=== PATIENT | female | born 1945 | race Caucasian/White ===

== ENCOUNTER 2021-04-06 16:59 | Emergency (ER) | payer OTHER ==
[2021-04-06 17:20] VITALS: TEMP 98; BMI 39.3
[2021-04-06] MEDS ORDERED: LIDOCAINE 5% TOPICAL PATCH TP ONE (17:45)
[2021-04-06] MEDS ORDERED: ACETAMINOPHEN 500 MG TABLET (FP) PO ONE (17:45)
[2021-04-06] MEDS ORDERED: ACETAMINOPHEN 500 MG TABLET (FP) ONE (17:49)
[2021-04-06 21:32] VITALS: BP 166/85; PULSE 61
[2021-04-06] MEDS ORDERED: LIDOCAINE PATCH REMOVAL MC SCH (22:00)
== END 2021-04-06 21:50 | disposition home or self-care (01) ==
LOC: JERFT 16:59 → JER 16:59
DX: M25.552 Pain in left hip (principal); R07.81 Pleurodynia; M54.5 Low back pain; W18.2XXA Fall in (into) shower or empty bathtub, initial encounter
CPT/HCPCS: 71046-TC-FY; 71101-TC-LT-FY; 72100-TC-FY; 72192-TC; 73562-TC-LT-FY; 73610-TC-LT-FY; 73630-TC-LT; 73700-TC-RT; 99285-25

== ENCOUNTER 2021-12-14 17:34 | Inpatient (IN) | payer OTHER ==
[2021-12-14 17:58] VITALS: BMI 43.0
[2021-12-14] MEDS ORDERED: ALBUTEROL SO4 2.5/IPRATROPIUM 0.5 INH SOL 3 ML VIAL.NEB. NEB ONE (18:39)
[2021-12-14 18:53] LABS: BASO % 1.1 % (0-2.0); EOS % 2.3 % (0-4.5); HEMATOCRIT 35.3 % (32.4-45.2); LYMPH % 35.9 % (8-40); MCH 23.1 pg (25.7-33.7); MCHC 31.3 g/dl (32.0-36.0); MEAN CELL VOLUME 73.8 fl (80-96); MEAN PLT VOLUME 7.7 fl (7.5-11.1); MONO % 17.3 % (3.8-10.2); NEUT % 43.4 % (42.8-82.8); PLATELET COUNT 306 10^3/uL (134-434); RBC 4.78 M/mm3 (3.60-5.2); RDW 16.9 % (11.6-15.6); WHITE BLOOD COUNT 5.7 K/mm3 (4.0-10.0)
[2021-12-14 19:00] LABS: INR 1.31 (0.83-1.09); PROTHROMBIN TIME (PATIENT) 15.1 SEC (9.7-13.0)
[2021-12-14 19:03] LABS: ACTIVATED PTT 29.1 SECONDS (25.2-36.5)
[2021-12-14] MEDS: ALBUTEROL SO4 2.5/IPRATROPIUM 0.5 INH SOL 3 ML VIAL.NEB. NEB SCH ×2 (19:05→19:30)
[2021-12-14 19:17] LABS: CALCIUM 8.8 mg/dL (8.5-10.1)
[2021-12-14 19:18] LABS: ALBUMIN 3.8 g/dl (3.4-5.0); MAGNESIUM 1.9 mg/dL (1.8-2.4)
[2021-12-14 19:21] LABS: CREATININE 0.6 mg/dL (0.55-1.3)
[2021-12-14 19:22] LABS: BILIRUBIN,TOTAL 0.2 mg/dL (0.2-1); TOT PROT 6.9 g/dl (6.4-8.2)
[2021-12-14 19:26] LABS: N-TERMINAL BNP 250.7 pg/ml (5-450)
[2021-12-14] MEDS ORDERED: methylPREDNISolone NA SUCC 125 MG/2 ML VIAL IVPUSH ONE (19:51)
[2021-12-14] MEDS ORDERED: ALBUTEROL SO4 0.5 % INH SOLN 2.5 MG/0.5 ML VIAL.NEB. NEB ONE ×2 (20:33→21:04)
[2021-12-14] MEDS ORDERED: methylPREDNISolone NA SUCC 125 MG/2 ML VIAL ONE (20:33)
[2021-12-15] MEDS ORDERED: methylPREDNISolone NA SUCC 40 MG/1 ML VIAL ONE ×2 (04:09→09:17)
[2021-12-15] MEDS: methylPREDNISolone NA SUCC 40 MG/1 ML VIAL IVPUSH SCH ×2 (04:29→09:30)
[2021-12-15] MEDS ORDERED: ACETAMINOPHEN 1000 MG/100 ML BAG IVPB PRN (04:32)
[2021-12-15 07:31] LABS: BASO % 0.2 % (0-2.0); HEMATOCRIT 35.4 % (32.4-45.2); HEMOGLOBIN 11.2 GM/dL (10.7-15.3); LYMPH % 23.7 % (8-40); MCH 23.2 pg (25.7-33.7); MCHC 31.7 g/dl (32.0-36.0); MEAN PLT VOLUME 7.7 fl (7.5-11.1); MONO % 4.4 % (3.8-10.2); NEUT % 71.7 % (42.8-82.8); PLATELET COUNT 277 10^3/uL (134-434); RBC 4.85 M/mm3 (3.60-5.2); RDW 16.6 % (11.6-15.6); WHITE BLOOD COUNT 4.7 K/mm3 (4.0-10.0)
[2021-12-15 07:55] LABS: ALBUMIN 3.7 g/dl (3.4-5.0); BLOOD UREA NITROGEN 6.5 mg/dL (7-18)
[2021-12-15 07:57] LABS: CREATININE 0.5 mg/dL (0.55-1.3); PHOSPHOROUS 3.6 mg/dL (2.5-4.9)
[2021-12-15 07:58] LABS: BILIRUBIN,TOTAL 0.4 mg/dL (0.2-1)
[2021-12-15 07:59] LABS: TOT PROT 7.2 g/dl (6.4-8.2)
[2021-12-15] MEDS: INSULIN SLIDING SCALE (NOVOLOG) 1 VIAL SQ SCH ×4 (08:00→22:09)
[2021-12-15] MEDS: PANTOPRAZOLE 20 MG TABLET PO SCH (09:00)
[2021-12-15] MEDS: LISINOPRIL 10 MG TABLET PO SCH (09:00)
[2021-12-15] MEDS: PREGABALIN 100 MG CAPSULE PO SCH ×2 (09:00→22:00)
[2021-12-15] MEDS: amLODIPine BESYLATE 5 MG TABLET (FP) PO SCH (09:00)
[2021-12-15] MEDS: ALBUTEROL SO4 2.5/IPRATROPIUM 0.5 INH SOL 3 ML VIAL.NEB. NEB SCH ×2 (09:00→13:24)
[2021-12-15] MEDS: MEMANTINE HCL 10 MG TABLET (FP) PO SCH ×2 (09:00→22:00)
[2021-12-15 09:08] LABS: EPI CELLS 7 /uL (0-25.1); HYALINE CASTS 0 /uL (0-3.1); PH,URINE 7.5 (5.0-8.0); URINE APPEARANCE CLEAR; URINE BACTERIA 33 /uL (0-1359); URINE BILIRUBIN NEGATIVE (NEGATIVE); URINE COLOR YELLOW; URINE GLUCOSE (UA) NEGATIVE (NEGATIVE); URINE KETONE NEGATIVE (NEGATIVE); URINE LEUK ESTERASE NEGATIVE (NEGATIVE); URINE NITRITE NEGATIVE (NEGATIVE); URINE PROTEIN 2+ (NEGATIVE); URINE RBC 7 /uL (0-23.9); URINE UROBILINOGEN 0.2 mg/dL (0.2-1.0); URINE WBC 6 /uL (0-25.8)
[2021-12-15] MEDS ORDERED: amLODIPine BESYLATE 5 MG TABLET (FP) ONE (09:16)
[2021-12-15] MEDS ORDERED: ALBUTEROL SO4 2.5/IPRATROPIUM 0.5 INH SOL 3 ML VIAL.NEB. NEB ONE ×2 (09:16→13:14)
[2021-12-15] MEDS ORDERED: PREGABALIN 100 MG CAPSULE ONE (09:16)
[2021-12-15] MEDS ORDERED: PANTOPRAZOLE 20 MG TABLET PO ONE (09:16)
[2021-12-15] MEDS ORDERED: LISINOPRIL 10 MG TABLET ONE (09:17)
[2021-12-15] MEDS ORDERED: AZITHROMYCIN IVPB 500 MG/250 ML BAG IVPB ONE (09:17)
[2021-12-15] MEDS: OXcarbazepine 300 MG TABLET (UD) PO SCH ×2 (09:30→22:52)
[2021-12-15] MEDS: RIVAROXABAN 10 MG TABLET PO SCH (09:30)
[2021-12-15] MEDS ORDERED: PATIENT'S OWN MEDICATION (NON-FORMULARY) (Amlodipine Besylate/Benazepril [Amlodipine-Benaz PO SCH (10:00)
[2021-12-15] MEDS ORDERED: BUDESONIDE/FORMETEROL FUMARATE 80/4.5 mcg INHALER IH SCH (10:00)
[2021-12-15] MEDS: AZITHROMYCIN IVPB 500 MG/250 ML BAG IVPB SCH (11:30)
[2021-12-15 11:48] LABS: ARTERIAL BLOOD GAS pH 7.427 (7.350-7.450)
[2021-12-15 11:49] LABS: ARTERIAL BLOOD GAS BASE EXCESS -0.1 mmol/L (-2-2); ARTERIAL BLOOD GAS PO2 67.7 mmHg (80-100)
[2021-12-15 11:50] LABS: ALLENS TEST POSITIVE
[2021-12-15] MEDS ORDERED: buPROPion HCL 100 MG TABLET ONE (13:14)
[2021-12-15] MEDS ORDERED: DONEPEZIL HCL 10 MG TABLET (FP) PO SCH (22:00)
[2021-12-15] MEDS ORDERED: PRAMIPEXOLE DIHYDROCHLORIDE 0.25 MG TABLET PO SCH (22:00)
[2021-12-16] MEDS: INSULIN SLIDING SCALE (NOVOLOG) 1 VIAL SQ SCH ×3 (06:33→17:15)
[2021-12-16 06:48] LABS: HEMATOCRIT 34.3 % (32.4-45.2); HEMOGLOBIN 10.7 GM/dL (10.7-15.3); MCH 23.1 pg (25.7-33.7); MCHC 31.2 g/dl (32.0-36.0); MEAN CELL VOLUME 74.3 fl (80-96); MEAN PLT VOLUME 8.2 fl (7.5-11.1); PLATELET COUNT 301 10^3/uL (134-434); RBC 4.62 M/mm3 (3.60-5.2); WHITE BLOOD COUNT 11.7 K/mm3 (4.0-10.0)
[2021-12-16 07:32] LABS: BLOOD UREA NITROGEN 11.9 mg/dL (7-18); CALCIUM 8.8 mg/dL (8.5-10.1)
[2021-12-16 07:36] LABS: CREATININE 0.6 mg/dL (0.55-1.3); PHOSPHOROUS 4.6 mg/dL (2.5-4.9)
[2021-12-16] MEDS: LISINOPRIL 10 MG TABLET PO SCH (09:54)
[2021-12-16] MEDS: amLODIPine BESYLATE 5 MG TABLET (FP) PO SCH (09:54)
[2021-12-16] MEDS: MEMANTINE HCL 10 MG TABLET (FP) PO SCH (09:54)
[2021-12-16] MEDS: PANTOPRAZOLE 20 MG TABLET PO SCH (09:54)
[2021-12-16] MEDS: OXcarbazepine 300 MG TABLET (UD) PO SCH (09:55)
[2021-12-16] MEDS: RIVAROXABAN 10 MG TABLET PO SCH (09:55)
[2021-12-16] MEDS ORDERED: NADOLOL 20 MG TABLET (FP) PO SCH (10:00)
[2021-12-16] MEDS: AZITHROMYCIN IVPB 500 MG/250 ML BAG IVPB SCH (10:00)
[2021-12-16] MEDS: PREGABALIN 100 MG CAPSULE PO SCH (10:02)
[2021-12-16] MEDS ORDERED: predniSONE 20 MG TABLET (UD) PO SCH (15:45)
[2021-12-16 18:26] VITALS: BP 124/78; PULSE 60; TEMP 98.1
== END 2021-12-16 18:48 | disposition home or self-care (01) | DRG 202 ==
LOC: JER 17:34 → JERBED 19:51 → J4W 12-15 18:59
PROVIDERS: ADMIT Internal Medicine; ATTEND Internal Medicine
DX: J20.9 Acute bronchitis, unspecified (principal); J96.01 Acute respiratory failure with hypoxia; Z68.41 Body mass index [BMI] 40.0-44.9, adult; E87.1 Hypo-osmolality and hyponatremia; E11.9 Type 2 diabetes mellitus without complications; K57.90 Diverticulosis of intestine, part unspecified, without perforation or abscess without bleeding; G20 Parkinson's disease; K90.0 Celiac disease; G30.9 Alzheimer's disease, unspecified; F02.80 Dementia in other diseases classified elsewhere, unspecified severity, without behavioral disturbance, psychotic disturbance, mood disturbance, and anxiety; E66.01 Morbid (severe) obesity due to excess calories; E11.65 Type 2 diabetes mellitus with hyperglycemia; R94.31 Abnormal electrocardiogram [ECG] [EKG]; G50.0 Trigeminal neuralgia; G25.81 Restless legs syndrome; D50.9 Iron deficiency anemia, unspecified; K64.8 Other hemorrhoids; G47.00 Insomnia, unspecified; N28.1 Cyst of kidney, acquired; G43.809 Other migraine, not intractable, without status migrainosus; M81.0 Age-related osteoporosis without current pathological fracture; F41.9 Anxiety disorder, unspecified; M54.50 Low back pain, unspecified; Z86.711 Personal history of pulmonary embolism; Z86.73 Personal history of transient ischemic attack (TIA), and cerebral infarction without residual deficits
CPT/HCPCS: 0241U-QW; 36415; 36600; 71045-TC-FY; 71250-TC; 80048; 80053; 81003; 82803; 82962; 83735; 83880; 84100; 84443; 84484; 85025; 85027; 85610; 85730; 87040; 87070; 87086; 87205; 87899; 93005; 93010; 93306-TC; 94761; 97116-GP; 97161-GP; 99291; 99292

== ENCOUNTER 2022-08-27 11:44 | Inpatient (IN) | payer OTHER ==
[2022-08-27 11:54] VITALS: BMI 43.7
[2022-08-27 14:31] LABS: BASO % 0.3 % (0-2.0); EOS % 1.5 % (0-4.5); HEMATOCRIT 25.7 % (32.4-45.2); HEMOGLOBIN 7.7 GM/dL (10.7-15.3); LYMPH % 34.1 % (8-40); MCHC 29.8 g/dl (32.0-36.0); MEAN CELL VOLUME 59.4 fl (80-96); MEAN PLT VOLUME 8.8 fl (7.5-11.1); MONO % 14.7 % (3.8-10.2); NEUT % 49.4 % (42.8-82.8); PLATELET COUNT 280 10^3/uL (134-434); RBC 4.33 M/mm3 (3.60-5.2); RDW 21.8 % (11.6-15.6); RETICULOCYTES 1.96 % (0.5-1.5); WHITE BLOOD COUNT 6.9 K/mm3 (4.0-10.0)
[2022-08-27 14:32] LABS: MCH 17.7 pg (25.7-33.7)
[2022-08-27 14:40] LABS: INR 1.28 (0.83-1.09); PROTHROMBIN TIME (PATIENT) 14.8 SEC (9.7-13.0)
[2022-08-27 14:43] LABS: ACTIVATED PTT 30.2 SECONDS (25.2-36.5)
[2022-08-27 14:50] LABS: CALCIUM 8.8 mg/dL (8.5-10.1)
[2022-08-27 14:51] LABS: ALBUMIN 3.6 g/dl (3.4-5.0); BLOOD UREA NITROGEN 7.4 mg/dL (7-18)
[2022-08-27 14:53] LABS: CREATININE 0.5 mg/dL (0.55-1.3)
[2022-08-27 14:56] LABS: BILIRUBIN,TOTAL 0.3 mg/dL (0.2-1); TOT PROT 6.5 g/dl (6.4-8.2)
[2022-08-27 15:48] LABS: ANISOCYTOSIS 3+; MACROCYTOSIS 0
[2022-08-27] MEDS: INSULIN SLIDING SCALE (NOVOLOG) 1 VIAL SQ SCH (16:43)
[2022-08-27] MEDS ORDERED: IRON SUCROSE INJECTION 100 MG in SODIUM CHLORIDE 95 ML IVPB ONE (17:00)
[2022-08-27] MEDS ORDERED: PREGABALIN 200 MG PO SCH (22:00)
[2022-08-27] MEDS: PRAMIPEXOLE DIHYDROCHLORIDE 0.25 MG TABLET PO SCH (22:16)
[2022-08-27] MEDS: PREGABALIN 100 MG CAPSULE PO SCH (22:16)
[2022-08-27] MEDS: MEMANTINE HCL 10 MG TABLET (FP) PO SCH (22:16)
[2022-08-27] MEDS: QUEtiapine FUMARATE 25 MG TABLET PO SCH (22:16)
[2022-08-27] MEDS: OXcarbazepine 300 MG TABLET (UD) PO SCH (22:17)
[2022-08-28] MEDS: INSULIN SLIDING SCALE (NOVOLOG) 1 VIAL SQ SCH ×3 (06:07→16:56)
[2022-08-28 07:55] LABS: BASO % 3.4 % (0-2.0); EOS % 2.7 % (0-4.5); HEMATOCRIT 29.3 % (32.4-45.2); HEMOGLOBIN 9.1 GM/dL (10.7-15.3); LYMPH % 29.5 % (8-40); MCHC 31.2 g/dl (32.0-36.0); MEAN CELL VOLUME 62.1 fl (80-96); MEAN PLT VOLUME 8.9 fl (7.5-11.1); MONO % 16.6 % (3.8-10.2); NEUT % 47.8 % (42.8-82.8); PLATELET COUNT 313 10^3/uL (134-434); RBC 4.71 M/mm3 (3.60-5.2); RDW 24.2 % (11.6-15.6); WHITE BLOOD COUNT 4.9 K/mm3 (4.0-10.0)
[2022-08-28 07:58] LABS: MCH 19.4 pg (25.7-33.7)
[2022-08-28 09:01] LABS: CREATININE 0.4 mg/dL (0.55-1.3)
[2022-08-28] MEDS: DONEPEZIL HCL 10 MG TABLET (FP) PO SCH (09:13)
[2022-08-28] MEDS: PANTOPRAZOLE 20 MG TABLET PO SCH (09:13)
[2022-08-28] MEDS: amLODIPine BESYLATE 5 MG TABLET (FP) PO SCH (09:13)
[2022-08-28] MEDS: MEMANTINE HCL 10 MG TABLET (FP) PO SCH ×2 (09:13→21:37)
[2022-08-28] MEDS: LISINOPRIL 10 MG TABLET PO SCH (09:13)
[2022-08-28] MEDS: OXcarbazepine 300 MG TABLET (UD) PO SCH ×2 (09:14→21:37)
[2022-08-28] MEDS: PREGABALIN 100 MG CAPSULE PO SCH ×2 (09:14→21:37)
[2022-08-28] MEDS ORDERED: PATIENT'S OWN MEDICATION (NON-FORMULARY) (Bupropion Hcl [Bupropion Xl] 300 MG Tab.Er.24h) PO SCH (10:00)
[2022-08-28] MEDS ORDERED: PATIENT'S OWN MEDICATION (NON-FORMULARY) (Amlodipine Besylate/Benazepril [Amlodipine-Benaz PO SCH (10:00)
[2022-08-28] MEDS ORDERED: PATIENT'S OWN MEDICATION (NON-FORMULARY) (Omeprazole 20 MG Capsule.Dr) PO SCH (10:00)
[2022-08-28] MEDS: SODIUM CHLORIDE 1,000 ML IV SCH (15:34)
[2022-08-28] MEDS: PRAMIPEXOLE DIHYDROCHLORIDE 0.25 MG TABLET PO SCH (21:37)
[2022-08-28] MEDS: QUEtiapine FUMARATE 25 MG TABLET PO SCH (21:37)
[2022-08-29] MEDS: INSULIN SLIDING SCALE (NOVOLOG) 1 VIAL SQ SCH ×3 (06:30→18:32)
[2022-08-29 07:49] LABS: BASO % 2.3 % (0-2.0); EOS % 1.8 % (0-4.5); HEMATOCRIT 29.5 % (32.4-45.2); HEMOGLOBIN 8.9 GM/dL (10.7-15.3); LYMPH % 24.3 % (8-40); MCHC 30.3 g/dl (32.0-36.0); MEAN CELL VOLUME 62.7 fl (80-96); MEAN PLT VOLUME 8.7 fl (7.5-11.1); MONO % 14.5 % (3.8-10.2); NEUT % 57.1 % (42.8-82.8); PLATELET COUNT 343 10^3/uL (134-434); RBC 4.71 M/mm3 (3.60-5.2); RDW 23.9 % (11.6-15.6); WHITE BLOOD COUNT 7.7 K/mm3 (4.0-10.0)
[2022-08-29 08:16] LABS: CREATININE 0.6 mg/dL (0.55-1.3)
[2022-08-29 08:27] LABS: BLOOD UREA NITROGEN 10.1 mg/dL (7-18)
[2022-08-29] MEDS: DONEPEZIL HCL 10 MG TABLET (FP) PO SCH (09:25)
[2022-08-29] MEDS: PANTOPRAZOLE 20 MG TABLET PO SCH (09:25)
[2022-08-29] MEDS: LISINOPRIL 10 MG TABLET PO SCH (09:25)
[2022-08-29] MEDS: MEMANTINE HCL 10 MG TABLET (FP) PO SCH ×2 (09:25→22:02)
[2022-08-29] MEDS: PREGABALIN 100 MG CAPSULE PO SCH ×2 (09:25→22:02)
[2022-08-29] MEDS: amLODIPine BESYLATE 5 MG TABLET (FP) PO SCH (09:25)
[2022-08-29] MEDS: OXcarbazepine 300 MG TABLET (UD) PO SCH ×2 (09:26→22:02)
[2022-08-29 10:55] LABS: MAGNESIUM 2.1 mg/dL (1.8-2.4)
[2022-08-29 10:56] LABS: ALBUMIN 3.6 g/dl (3.4-5.0)
[2022-08-29 11:00] LABS: BILIRUBIN,TOTAL 0.3 mg/dL (0.2-1); TOT PROT 6.6 g/dl (6.4-8.2)
[2022-08-29] MEDS ORDERED: ENOXAPARIN NA (PORCINE) 40 MG/0.4 ML DISP.SYRIN SQ SCH (13:00)
[2022-08-29] MEDS: SODIUM CHLORIDE 1,000 ML IV SCH (15:18)
[2022-08-29] MEDS: FAMOTIDINE 20 MG TABLET PO SCH (18:32)
[2022-08-29] MEDS: RIVAROXABAN 10 MG TABLET PO SCH (18:32)
[2022-08-29] MEDS: PRAMIPEXOLE DIHYDROCHLORIDE 0.25 MG TABLET PO SCH (22:02)
[2022-08-29] MEDS: QUEtiapine FUMARATE 25 MG TABLET PO SCH (22:02)
[2022-08-30] MEDS: INSULIN SLIDING SCALE (NOVOLOG) 1 VIAL SQ SCH ×3 (06:36→18:47)
[2022-08-30 08:20] LABS: BASO % 1.1 % (0-2.0); EOS % 0.2 % (0-4.5); HEMATOCRIT 33.2 % (32.4-45.2); HEMOGLOBIN 9.8 GM/dL (10.7-15.3); LYMPH % 13.9 % (8-40); MCHC 29.4 g/dl (32.0-36.0); MEAN CELL VOLUME 63.4 fl (80-96); MEAN PLT VOLUME 9.3 fl (7.5-11.1); MONO % 12.7 % (3.8-10.2); NEUT % 72.1 % (42.8-82.8); PLATELET COUNT 360 10^3/uL (134-434); RBC 5.24 M/mm3 (3.60-5.2); RDW 25.1 % (11.6-15.6); WHITE BLOOD COUNT 15.9 K/mm3 (4.0-10.0)
[2022-08-30 08:28] LABS: MCH 18.6 pg (25.7-33.7)
[2022-08-30 08:34] LABS: CALCIUM 9.3 mg/dL (8.5-10.1)
[2022-08-30 08:35] LABS: BLOOD UREA NITROGEN 13.6 mg/dL (7-18)
[2022-08-30 08:37] LABS: PHOSPHOROUS 4.3 mg/dL (2.5-4.9)
[2022-08-30 08:39] LABS: BILIRUBIN,TOTAL 0.5 mg/dL (0.2-1); TOT PROT 7.2 g/dl (6.4-8.2)
[2022-08-30] MEDS: FAMOTIDINE 20 MG TABLET PO SCH (09:37)
[2022-08-30] MEDS: amLODIPine BESYLATE 5 MG TABLET (FP) PO SCH (09:37)
[2022-08-30] MEDS: LISINOPRIL 10 MG TABLET PO SCH (09:37)
[2022-08-30] MEDS: DONEPEZIL HCL 10 MG TABLET (FP) PO SCH (09:37)
[2022-08-30] MEDS: PREGABALIN 100 MG CAPSULE PO SCH ×2 (09:37→21:31)
[2022-08-30] MEDS: MEMANTINE HCL 10 MG TABLET (FP) PO SCH ×2 (09:37→21:32)
[2022-08-30] MEDS: PANTOPRAZOLE 20 MG TABLET PO SCH (09:38)
[2022-08-30] MEDS: OXcarbazepine 300 MG TABLET (UD) PO SCH ×2 (09:38→21:33)
[2022-08-30] MEDS: RIVAROXABAN 10 MG TABLET PO SCH (09:39)
[2022-08-30] MEDS ORDERED: NAPH,MB-DB/K PH,MBDB POWDER PACKET PO ONE (12:30)
[2022-08-30 13:18] LABS: BASO % 0.5 % (0-2.0); EOS % 0.6 % (0-4.5); HEMATOCRIT 31.2 % (32.4-45.2); HEMOGLOBIN 9.3 GM/dL (10.7-15.3); MCHC 29.8 g/dl (32.0-36.0); MEAN CELL VOLUME 63.3 fl (80-96); MEAN PLT VOLUME 8.6 fl (7.5-11.1); MONO % 11.4 % (3.8-10.2); NEUT % 75.5 % (42.8-82.8); PLATELET COUNT 349 10^3/uL (134-434); RBC 4.93 M/mm3 (3.60-5.2); RDW 25.4 % (11.6-15.6); WHITE BLOOD COUNT 12.8 K/mm3 (4.0-10.0)
[2022-08-30 13:19] LABS: MCH 18.8 pg (25.7-33.7)
[2022-08-30] MEDS ORDERED: QUEtiapine FUMARATE 25 MG TABLET PO SCH (14:36)
[2022-08-30] MEDS: PRAMIPEXOLE DIHYDROCHLORIDE 0.25 MG TABLET PO SCH (21:32)
[2022-08-31] MEDS: INSULIN SLIDING SCALE (NOVOLOG) 1 VIAL SQ SCH ×2 (06:18→12:08)
[2022-08-31 09:39] LABS: HEMATOCRIT 26.7 % (32.4-45.2); HEMOGLOBIN 8.2 GM/dL (10.7-15.3); MCHC 30.7 g/dl (32.0-36.0); MEAN CELL VOLUME 62.5 fl (80-96); MEAN PLT VOLUME 8.3 fl (7.5-11.1); PLATELET COUNT 309 10^3/uL (134-434); RBC 4.26 M/mm3 (3.60-5.2); RDW 25.4 % (11.6-15.6); WHITE BLOOD COUNT 7.3 K/mm3 (4.0-10.0)
[2022-08-31 09:50] LABS: MCH 19.2 pg (25.7-33.7)
[2022-08-31] MEDS: SODIUM PHOSPHATE - 30 MM in SODIUM CHLORIDE 500 ML IVPB ONE ×2 (09:58→12:38)
[2022-08-31] MEDS: SODIUM CHLORIDE 1,000 ML IV SCH ×2 (09:58→12:39)
[2022-08-31] MEDS: RIVAROXABAN 10 MG TABLET PO SCH (09:59)
[2022-08-31] MEDS: FAMOTIDINE 20 MG TABLET PO SCH (09:59)
[2022-08-31] MEDS: MEMANTINE HCL 10 MG TABLET (FP) PO SCH (10:00)
[2022-08-31] MEDS: OXcarbazepine 300 MG TABLET (UD) PO SCH (10:00)
[2022-08-31] MEDS: PANTOPRAZOLE 20 MG TABLET PO SCH (10:00)
[2022-08-31] MEDS: PREGABALIN 100 MG CAPSULE PO SCH (10:00)
[2022-08-31] MEDS: LISINOPRIL 10 MG TABLET PO SCH (10:00)
[2022-08-31] MEDS: amLODIPine BESYLATE 5 MG TABLET (FP) PO SCH (10:00)
[2022-08-31] MEDS ORDERED: PREGABALIN 50 MG CAPSULE PO SCH (10:48)
[2022-08-31 10:58] LABS: ALBUMIN 3.6 g/dl (3.4-5.0); BLOOD UREA NITROGEN 19.1 mg/dL (7-18); MAGNESIUM 1.8 mg/dL (1.8-2.4)
[2022-08-31 11:00] LABS: CREATININE 0.8 mg/dL (0.55-1.3)
[2022-08-31 11:01] LABS: PHOSPHOROUS 5.5 mg/dL (2.5-4.9)
[2022-08-31 11:02] LABS: BILIRUBIN,TOTAL 0.4 mg/dL (0.2-1); TOT PROT 6.6 g/dl (6.4-8.2)
[2022-08-31 11:58] VITALS: RESP 18
[2022-08-31 14:45] VITALS: BP 133/83; PULSE 73; TEMP 98.7
[2022-08-31] MEDS ORDERED: DONEPEZIL HCL 5 MG TABLET (FP) PO SCH (22:00)
[2022-09-01 17:09] LABS: GLIADIN ANTIBODY IGA 5 units (0-19); GLIADIN ANTIBODY IGG 4 units (0-19); TRANSGLUTAMINASE IGG 3 U/mL (0-5)
== END 2022-08-31 16:31 | disposition left against medical advice (07) | DRG 812 ==
LOC: JER 11:44 → JERBED 15:08 → J4W 17:31 → OBSVTOIN 08-29 11:51
PROVIDERS: ADMIT Internal Medicine; ATTEND Internal Medicine
PROC: 30233N1 Transfusion of Nonautologous Red Blood Cells into Peripheral Vein, Percutaneous Approach (ICD-10-PCS; principal; 2022-08-27)
DX: D50.9 Iron deficiency anemia, unspecified (principal); E87.1 Hypo-osmolality and hyponatremia; Z68.41 Body mass index [BMI] 40.0-44.9, adult; G30.9 Alzheimer's disease, unspecified; I10 Essential (primary) hypertension; G20 Parkinson's disease; E11.9 Type 2 diabetes mellitus without complications; K90.0 Celiac disease; G50.0 Trigeminal neuralgia; R19.5 Other fecal abnormalities; E66.01 Morbid (severe) obesity due to excess calories
CPT/HCPCS: 0241U-QW; 36415; 36430; 70450-TC; 71046-TC-FY; 80048; 80053; 82272; 82570; 82607; 82728; 82746; 82784; 82962; 83010; 83516; 83540; 83550; 83735; 83935; 84100; 84300; 84466; 85025; 85027; 85045; 85610; 85730; 86850; 86900; 86901; 86922; 93005; 93010; 94010; 94761; 97116-GP; 97162-GP; 99285-25; G0378; J1756; P9058

== ENCOUNTER 2022-10-31 11:38 | Inpatient (IN) | payer OTHER ==
[2022-10-31 11:57] VITALS: BMI 43.0
[2022-10-31 13:58] LABS: BASO % 3.1 % (0-2.0); EOS % 2.7 % (0-4.5); HEMATOCRIT 35.1 % (32.4-45.2); HEMOGLOBIN 11.1 GM/dL (10.7-15.3); LYMPH % 41.8 % (8-40); MCH 23.2 pg (25.7-33.7); MCHC 31.7 g/dl (32.0-36.0); MEAN CELL VOLUME 73.2 fl (80-96); MONO % 16.9 % (3.8-10.2); NEUT % 35.5 % (42.8-82.8); PLATELET COUNT 265 10^3/uL (134-434); RBC 4.79 M/mm3 (3.60-5.2); RDW 30.8 % (11.6-15.6); WHITE BLOOD COUNT 4.3 K/mm3 (4.0-10.0)
[2022-10-31 14:01] LABS: EPI CELLS 28 /uL (0-25.1); HYALINE CASTS 0 /uL (0-3.1); URINE APPEARANCE CLEAR; URINE BACTERIA 672 /uL (0-1359); URINE BILIRUBIN NEGATIVE (NEGATIVE); URINE COLOR YELLOW; URINE GLUCOSE (UA) NEGATIVE (NEGATIVE); URINE KETONE NEGATIVE (NEGATIVE); URINE LEUK ESTERASE NEGATIVE (NEGATIVE); URINE NITRITE NEGATIVE (NEGATIVE); URINE PROTEIN NEGATIVE (NEGATIVE); URINE RBC 9 /uL (0-23.9); URINE WBC 14 /uL (0-25.8)
[2022-10-31 14:05] LABS: INR 1.28 (0.83-1.09); PROTHROMBIN TIME (PATIENT) 14.8 SEC (9.7-13.0)
[2022-10-31 14:08] LABS: ACTIVATED PTT 35.1 SECONDS (25.2-36.5)
[2022-10-31 14:36] LABS: POTASSIUM 4.8 mmol/L (3.5-5.1)
[2022-10-31 14:38] LABS: CALCIUM 9.4 mg/dL (8.5-10.1)
[2022-10-31 14:39] LABS: ALBUMIN 3.7 g/dl (3.4-5.0)
[2022-10-31 14:42] LABS: CREATININE 0.5 mg/dL (0.55-1.3)
[2022-10-31 14:43] LABS: BILIRUBIN,TOTAL 0.2 mg/dL (0.2-1); TOT PROT 6.9 g/dl (6.4-8.2)
[2022-10-31] MEDS ORDERED: CEFTRIAXONE 1 GM in DEXTROSE 5%-WATER - 100 ML IVPB ONE (15:37)
[2022-10-31] MEDS ORDERED: cefTRIAXone SODIUM 1 GM VIAL ONE (16:33)
[2022-10-31] MEDS: PREGABALIN 100 MG CAPSULE PO SCH (21:23)
[2022-10-31] MEDS: QUEtiapine FUMARATE 25 MG TABLET PO SCH (21:23)
[2022-10-31] MEDS: MEMANTINE HCL 10 MG TABLET (FP) PO SCH (21:24)
[2022-10-31] MEDS ORDERED: PANTOPRAZOLE 20 MG TABLET PO SCH (22:00)
[2022-10-31] MEDS ORDERED: SENNOSIDES 8.8 MG/5 ML SYRUP PO SCH (22:00)
[2022-10-31] MEDS: PRAMIPEXOLE DIHYDROCHLORIDE 0.25 MG TABLET PO SCH (22:02)
[2022-10-31] MEDS: OXcarbazepine 300 MG TABLET (UD) PO SCH (22:02)
[2022-11-01] MEDS ORDERED: NADOLOL 20 MG TABLET (FP) ONE (09:14)
[2022-11-01] MEDS: PREGABALIN 100 MG CAPSULE PO SCH ×2 (09:58→21:37)
[2022-11-01] MEDS: PANTOPRAZOLE 20 MG TABLET PO SCH (09:59)
[2022-11-01] MEDS: MEMANTINE HCL 10 MG TABLET (FP) PO SCH ×2 (09:59→21:37)
[2022-11-01] MEDS ORDERED: NADOLOL 40 MG TABLET (FP) PO SCH (10:00)
[2022-11-01] MEDS ORDERED: amLODIPine BESYLATE 5 MG TABLET (FP) PO SCH (10:00)
[2022-11-01] MEDS ORDERED: PATIENT'S OWN MEDICATION (NON-FORMULARY) (Amlodipine Besylate/Benazepril [Amlodipine-Benaz PO SCH (10:00)
[2022-11-01] MEDS ORDERED: CEFTRIAXONE 1 GM in DEXTROSE 5%-WATER - 50 ML IVPB SCH (10:00)
[2022-11-01] MEDS: OXcarbazepine 300 MG TABLET (UD) PO SCH ×2 (10:00→21:37)
[2022-11-01] MEDS ORDERED: LISINOPRIL 10 MG TABLET PO SCH (10:00)
[2022-11-01] MEDS ORDERED: POLYETHYLENE GLYCOL (HEALTHYLAX) 3350 17 GM PACKET PO SCH (10:00)
[2022-11-01 11:27] LABS: BASO % 1.8 % (0-2.0); EOS % 1.8 % (0-4.5); HEMATOCRIT 34.5 % (32.4-45.2); HEMOGLOBIN 10.9 GM/dL (10.7-15.3); LYMPH % 39.6 % (8-40); MCH 23.2 pg (25.7-33.7); MCHC 31.5 g/dl (32.0-36.0); MEAN CELL VOLUME 73.6 fl (80-96); MEAN PLT VOLUME 8.6 fl (7.5-11.1); MONO % 14.2 % (3.8-10.2); NEUT % 42.6 % (42.8-82.8); PLATELET COUNT 236 10^3/uL (134-434); RBC 4.68 M/mm3 (3.60-5.2); RDW 30.5 % (11.6-15.6); WHITE BLOOD COUNT 3.8 K/mm3 (4.0-10.0)
[2022-11-01 11:33] LABS: INR 1.26 (0.83-1.09); PROTHROMBIN TIME (PATIENT) 14.6 SEC (9.7-13.0)
[2022-11-01 11:49] LABS: POTASSIUM 4.5 mmol/L (3.5-5.1)
[2022-11-01 12:02] LABS: CALCIUM 9.6 mg/dL (8.5-10.1)
[2022-11-01 12:04] LABS: CREATININE 0.5 mg/dL (0.55-1.3)
[2022-11-01] MEDS: POLYETHYLENE GLYCOL (HEALTHYLAX) 3350 17 GM PACKET PO SCH ×2 (13:28→21:36)
[2022-11-01] MEDS ORDERED: IRON SUCROSE INJECTION 200 MG in SODIUM CHLORIDE 90 ML IVPB ONE (14:30)
[2022-11-01] MEDS: PRAMIPEXOLE DIHYDROCHLORIDE 0.25 MG TABLET PO SCH (21:37)
[2022-11-01] MEDS: QUEtiapine FUMARATE 25 MG TABLET PO SCH (21:37)
[2022-11-01] MEDS ORDERED: DONEPEZIL HCL 10 MG TABLET (FP) PO SCH (22:00)
[2022-11-02] MEDS ORDERED: SODIUM CHLORIDE 0.9% 500 ML INFUS.BAG IV ONE (02:56)
[2022-11-02] MEDS ORDERED: SODIUM CHLORIDE 1,000 ML IV STA (03:03)
[2022-11-02 04:46] LABS: EOS % 1.8 % (0-4.5); HEMATOCRIT 30.9 % (32.4-45.2); HEMOGLOBIN 9.8 GM/dL (10.7-15.3); LYMPH % 27.3 % (8-40); MCH 23.4 pg (25.7-33.7); MCHC 31.9 g/dl (32.0-36.0); MEAN CELL VOLUME 73.4 fl (80-96); MEAN PLT VOLUME 8.9 fl (7.5-11.1); MONO % 15.4 % (3.8-10.2); NEUT % 54.5 % (42.8-82.8); PLATELET COUNT 214 10^3/uL (134-434); RBC 4.21 M/mm3 (3.60-5.2); WHITE BLOOD COUNT 4.4 K/mm3 (4.0-10.0)
[2022-11-02 04:47] LABS: HEMATOCRIT 30.9 % (32.4-45.2); HEMOGLOBIN 9.8 GM/dL (10.7-15.3); MCH 23.1 pg (25.7-33.7); MCHC 31.5 g/dl (32.0-36.0); MEAN CELL VOLUME 73.2 fl (80-96); MEAN PLT VOLUME 8.6 fl (7.5-11.1); PLATELET COUNT 222 10^3/uL (134-434); RBC 4.23 M/mm3 (3.60-5.2); RDW 29.8 % (11.6-15.6); WHITE BLOOD COUNT 4.7 K/mm3 (4.0-10.0)
[2022-11-02 05:06] LABS: POTASSIUM 4.4 mmol/L (3.5-5.1)
[2022-11-02 05:08] LABS: BLOOD UREA NITROGEN 8.7 mg/dL (7-18); CALCIUM 8.5 mg/dL (8.5-10.1)
[2022-11-02 05:09] LABS: ALBUMIN 3.3 g/dl (3.4-5.0); MAGNESIUM 1.7 mg/dL (1.8-2.4)
[2022-11-02 05:11] LABS: PHOSPHOROUS 4.4 mg/dL (2.5-4.9)
[2022-11-02 05:12] LABS: CREATININE 0.9 mg/dL (0.55-1.3)
[2022-11-02 05:13] LABS: BILIRUBIN,TOTAL 0.2 mg/dL (0.2-1); TOT PROT 5.8 g/dl (6.4-8.2)
[2022-11-02] MEDS: POLYETHYLENE GLYCOL (HEALTHYLAX) 3350 17 GM PACKET PO SCH ×3 (06:24→21:43)
[2022-11-02] MEDS: PANTOPRAZOLE 20 MG TABLET PO SCH (09:49)
[2022-11-02] MEDS: PREGABALIN 100 MG CAPSULE PO SCH ×2 (09:50→21:38)
[2022-11-02] MEDS: MEMANTINE HCL 10 MG TABLET (FP) PO SCH ×2 (09:50→21:39)
[2022-11-02 09:57] LABS: ANISOCYTOSIS 0; MACROCYTOSIS 0
[2022-11-02] MEDS ORDERED: PEG 3350/NA SULF BICARB CL/KCL 4000 ML SOLN.RECON PO ONE (10:00)
[2022-11-02] MEDS: OXcarbazepine 300 MG TABLET (UD) PO SCH (11:46)
[2022-11-02] MEDS ORDERED: MAGNESIUM 2GM/50ML STERILE WATER IVPB IVPB ONE (12:29)
[2022-11-02] MEDS: PEG 3350/NA SULF BICARB CL/KCL 4000 ML SOLN.RECON PO ONE ×2 (13:28→14:24)
[2022-11-02] MEDS ORDERED: BISACODYL 5 MG TABLET.DR (FP) PO ONE ×2 (20:00)
[2022-11-02] MEDS: PRAMIPEXOLE DIHYDROCHLORIDE 0.25 MG TABLET PO SCH (21:39)
[2022-11-02] MEDS: OXcarbazepine 150 MG TABLET (UD) PO SCH (21:43)
[2022-11-02] MEDS ORDERED: QUEtiapine FUMARATE 25 MG TABLET PO SCH (22:00)
[2022-11-02] MEDS ORDERED: DONEPEZIL HCL 10 MG TABLET (FP) PO SCH (22:00)
[2022-11-03] MEDS: POLYETHYLENE GLYCOL (HEALTHYLAX) 3350 17 GM PACKET PO SCH ×3 (06:24→22:05)
[2022-11-03 08:17] LABS: BASO % 1.8 % (0-2.0); HEMATOCRIT 35.5 % (32.4-45.2); HEMOGLOBIN 11.3 GM/dL (10.7-15.3); LYMPH % 36.9 % (8-40); MCH 23.3 pg (25.7-33.7); MCHC 31.9 g/dl (32.0-36.0); MEAN CELL VOLUME 73.1 fl (80-96); MEAN PLT VOLUME 8.8 fl (7.5-11.1); MONO % 12.6 % (3.8-10.2); NEUT % 46.7 % (42.8-82.8); PLATELET COUNT 224 10^3/uL (134-434); RBC 4.86 M/mm3 (3.60-5.2); RDW 29.7 % (11.6-15.6); WHITE BLOOD COUNT 3.5 K/mm3 (4.0-10.0)
[2022-11-03 08:30] LABS: INR 1.24 (0.83-1.09); PROTHROMBIN TIME (PATIENT) 14.4 SEC (9.7-13.0)
[2022-11-03] MEDS: PREGABALIN 100 MG CAPSULE PO SCH ×2 (09:52→22:05)
[2022-11-03] MEDS: PANTOPRAZOLE 20 MG TABLET PO SCH (09:53)
[2022-11-03] MEDS: MEMANTINE HCL 10 MG TABLET (FP) PO SCH ×2 (09:53→22:06)
[2022-11-03] MEDS ORDERED: amLODIPine BESYLATE 5 MG TABLET (FP) PO SCH (10:00)
[2022-11-03] MEDS ORDERED: LISINOPRIL 10 MG TABLET PO SCH (10:00)
[2022-11-03] MEDS ORDERED: NADOLOL 40 MG TABLET (FP) PO SCH (10:00)
[2022-11-03] MEDS: OXcarbazepine 150 MG TABLET (UD) PO SCH (10:03)
[2022-11-03] MEDS: OXcarbazepine 300 MG TABLET (UD) PO SCH ×2 (10:03→22:48)
[2022-11-03 10:16] LABS: ALBUMIN 3.6 g/dl (3.4-5.0); BILIRUBIN,TOTAL 0.4 mg/dL (0.2-1); BLOOD UREA NITROGEN 6.9 mg/dL (7-18); CALCIUM 8.8 mg/dL (8.5-10.1); CREATININE 0.6 mg/dL (0.55-1.3); MAGNESIUM 1.9 mg/dL (1.8-2.4); PHOSPHOROUS 4.7 mg/dL (2.5-4.9); POTASSIUM 4.6 mmol/L (3.5-5.1); TOT PROT 6.6 g/dl (6.4-8.2)
[2022-11-03] MEDS: LISINOPRIL 10 MG TABLET PO SCH (10:28)
[2022-11-03] MEDS ORDERED: BISACODYL 5 MG TABLET.DR (FP) PO ONE (16:19)
[2022-11-03] MEDS ORDERED: POLYETHYLENE GLYCOL 3350 255 GM BTL PO ONE (17:00)
[2022-11-03 17:07] LABS: GLIADIN ANTIBODY IGA 3 units (0-19); GLIADIN ANTIBODY IGG 7 units (0-19); TRANSGLUTAMINASE IGG 6 U/mL (0-5)
[2022-11-03] MEDS: PRAMIPEXOLE DIHYDROCHLORIDE 0.25 MG TABLET PO SCH (22:05)
[2022-11-04] MEDS: POLYETHYLENE GLYCOL (HEALTHYLAX) 3350 17 GM PACKET PO SCH ×2 (06:10→15:08)
[2022-11-04 06:28] LABS: BASO % 1.7 % (0-2.0); EOS % 0.7 % (0-4.5); HEMATOCRIT 33.6 % (32.4-45.2); HEMOGLOBIN 10.9 GM/dL (10.7-15.3); LYMPH % 30.3 % (8-40); MCH 23.9 pg (25.7-33.7); MCHC 32.4 g/dl (32.0-36.0); MEAN CELL VOLUME 73.8 fl (80-96); MONO % 11.2 % (3.8-10.2); NEUT % 56.1 % (42.8-82.8); PLATELET COUNT 200 10^3/uL (134-434); RBC 4.56 M/mm3 (3.60-5.2); RDW 29.5 % (11.6-15.6); WHITE BLOOD COUNT 4.6 K/mm3 (4.0-10.0)
[2022-11-04 06:42] LABS: INR 1.28 (0.83-1.09); PROTHROMBIN TIME (PATIENT) 14.8 SEC (9.7-13.0)
[2022-11-04 06:54] LABS: POTASSIUM 4.2 mmol/L (3.5-5.1)
[2022-11-04 06:57] LABS: CALCIUM 8.9 mg/dL (8.5-10.1)
[2022-11-04 06:58] LABS: ALBUMIN 3.6 g/dl (3.4-5.0); BLOOD UREA NITROGEN 5.2 mg/dL (7-18); MAGNESIUM 1.6 mg/dL (1.8-2.4)
[2022-11-04 07:01] LABS: CREATININE 0.5 mg/dL (0.55-1.3); PHOSPHOROUS 4.4 mg/dL (2.5-4.9)
[2022-11-04 07:02] LABS: TOT PROT 6.6 g/dl (6.4-8.2)
[2022-11-04 07:03] LABS: BILIRUBIN,TOTAL 0.4 mg/dL (0.2-1)
[2022-11-04] MEDS ORDERED: MAGNESIUM SULF 50% (8.12 MEQ/2 ML-1 GM VIAL) IVPB ONE (07:30)
[2022-11-04] MEDS: PREGABALIN 100 MG CAPSULE PO SCH (09:56)
[2022-11-04] MEDS: OXcarbazepine 300 MG TABLET (UD) PO SCH (09:57)
[2022-11-04] MEDS: PANTOPRAZOLE 20 MG TABLET PO SCH (09:57)
[2022-11-04] MEDS: LISINOPRIL 10 MG TABLET PO SCH (09:57)
[2022-11-04] MEDS: MEMANTINE HCL 10 MG TABLET (FP) PO SCH (09:57)
[2022-11-04 15:23] VITALS: PULSE 70
[2022-11-04 15:44] VITALS: RESP 18
[2022-11-04 16:30] VITALS: BP 150/70; TEMP 97.8
[2022-11-05] MEDS ORDERED: POLYETHYLENE GLYCOL (HEALTHYLAX) 3350 17 GM PACKET PO SCH (10:00)
== END 2022-11-04 18:08 | disposition home or self-care (01) | DRG 394 ==
LOC: JER 11:38 → JERBED 15:22 → J6S 18:51 → OBSVTOIN 11-01 11:16 → J4W 11-02 08:07
PROVIDERS: ADMIT Internal Medicine; ATTEND Internal Medicine
PROC: 0DB68ZX Excision of Stomach, Via Natural or Artificial Opening Endoscopic, Diagnostic (ICD-10-PCS; 2022-11-03)
PROC: 0DB98ZX Excision of Duodenum, Via Natural or Artificial Opening Endoscopic, Diagnostic (ICD-10-PCS; principal; 2022-11-03 13:30)
PROC: 0DBP8ZX Excision of Rectum, Via Natural or Artificial Opening Endoscopic, Diagnostic (ICD-10-PCS; 2022-11-04)
PROC: 0DBL8ZX Excision of Transverse Colon, Via Natural or Artificial Opening Endoscopic, Diagnostic (ICD-10-PCS; 2022-11-04)
DX: K64.8 Other hemorrhoids (principal); K62.5 Hemorrhage of anus and rectum; K92.1 Melena; G30.9 Alzheimer's disease, unspecified; F02.80 Dementia in other diseases classified elsewhere, unspecified severity, without behavioral disturbance, psychotic disturbance, mood disturbance, and anxiety; G20 Parkinson's disease; I10 Essential (primary) hypertension; K90.0 Celiac disease; K57.90 Diverticulosis of intestine, part unspecified, without perforation or abscess without bleeding; G50.0 Trigeminal neuralgia; M54.50 Low back pain, unspecified; F41.8 Other specified anxiety disorders; G47.39 Other sleep apnea; D12.3 Benign neoplasm of transverse colon; D12.8 Benign neoplasm of rectum; R00.1 Bradycardia, unspecified; T44.7X5A Adverse effect of beta-adrenoreceptor antagonists, initial encounter; Z86.711 Personal history of pulmonary embolism; Z86.718 Personal history of other venous thrombosis and embolism
CPT/HCPCS: 0241U-QW; 36415; 80048; 80053; 81003; 82272; 82728; 82784; 83516; 83540; 83550; 83605; 83690; 83735; 84100; 84484; 85025; 85027; 85610; 85730; 86850; 86900; 86901; 87086; 88305-TC; 88341-TC; 93005; 93010; 97116-GP; 97162-GP; 99285-25; G0378; J1756